=== PATIENT | female | born 1980 | race Caucasian/White ===

== ENCOUNTER 2018-07-21 08:33 | Emergency (ER) | payer BC ==
--- NOTE | 2018-07-21 09:27 | EDM.PDOC ---
ED HPI GENERAL MEDICAL PROBLEM - General Source of Information: Reports: Patient History Limitations: Reports: No Limitations - History of Present Illness Onset Date: 07/20/18 Onset Time: 12:00 Duration: Day(s): (1) Location: Reports: Face (right facial area) Severity: Mild Improves with: Reports: None Worsens with: Reports: None Associated Symptoms: Reports: No Other Symptoms. Denies: Confusion, Fever/ Chills, Nausea/Vomiting, Rash, Seizure, Shortness of Breath, Syncope Headache Pain Score (Numeric/FACES): 2 - General Chief Complaint: Neurological Problem Stated Complaint: NUMBNESS - R SIDE OF FACE Time Seen by Provider: 07/21/18 09:05 - History of Present Illness INITIAL COMMENTS - FREE TEXT/NARRATIVE: 37-year-old female presents to emergency with chief complaints of right-sided facial numbness. Patient reports that yesterday morning she woke up with what she considers a migraine and a few hours later her right side of her face became numb. 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 She denies fever or chills, any numbness or tingling to her arms, no chest pain no shortness of breath no difficulty breathing or swallowing. She denies a headache at this time. She reports that she's taken prednisone in the past for her similar symptoms. She reports that she's been otherwise in good health. She does not have a PCP. (Angelika Schreiber) - Related Data Allergies Allergy/AdvReac Type Severity Reaction Status Date / Time No Known Allergies Allergy Verified 07/21/18 08:41 Home Meds: Home Meds Mineral Oil/Petrolatum Oint [Lacri-Lube S.O.P Oint] 3.5 gm .XX DAILY #1 tube [Rx] valACYclovir [Valtrex] 1,000 mg PO TID #21 tablet 07/21/18 [Rx] Past Medical History HEENT History: Reports: Impaired Vision Other HEENT History: wears glasses - Past Surgical History HEENT Surgical History: Reports: Tonsillectomy GI Surgical History: Reports: Cholecystectomy Social & Family History - Tobacco Use Smoking Status *Q: Never Smoker Second Hand Smoke Exposure: No - Caffeine Use Caffeine Use: Reports: Coffee, Soda ED ROS GENERAL - Review of Systems Review Of Systems: See Below Constitutional: Denies: Fever, Chills HEENT: Reports: No Symptoms. Denies: Eye Pain, Vertigo, Vision Change Cardiovascular: Reports: No Symptoms Endocrine: Reports: No Symptoms GI/Abdominal: Reports: No Symptoms : Reports: No Symptoms Musculoskeletal: Reports: No Symptoms Skin: Reports: No Symptoms Neurological: Reports: Numbness (right facial region) Psychiatric: Reports: No Symptoms Hematologic/Lymphatic: Reports: No Symptoms Immunologic: Reports: No Symptoms - Physical Exam Exam: See Below Exam Limited By: No Limitations General Appearance: Alert, WD/WN, No Apparent Distress Eye Exam: Bilateral Eye: EOMI, PERRL Ears: Normal External Exam, Normal Canal, Hearing Grossly Normal, Normal TMs Nose: Normal Inspection, Normal Mucosa, No Blood Throat/Mouth: Normal Inspection, Normal Lips, Normal Teeth, Normal Gums, Normal Oropharynx, Normal Voice, No Airway Compromise Head Exam: Atraumatic, Normocephalic Neck: Normal Inspection, Supple, Non-Tender, Full Range of Motion Respiratory/Chest: No Respiratory Distress, Lungs Clear, Normal Breath Sounds, No Accessory Muscle Use, Chest Non-Tender Cardiovascular: Normal Peripheral Pulses, Regular Rate, Rhythm, No Edema, No Gallop, No JVD, No Murmur, No Rub GI/Abdominal: Normal Bowel Sounds, Soft, Non-Tender, No Organomegaly, No Distention, No Abnormal Bruit, No Mass, Pelvis Stable Neuro Exam (Abbreviated): Alert, Oriented, CN II-XII Intact, Normal Cognition, Normal Gait, Normal Reflexes, No Motor/Sensory Deficits, Other (slight right facial droop) Back Exam: Normal Inspection, Full Range of Motion Extremities: Normal Inspection, Normal Range of Motion, Non-Tender, No Pedal Edema, Normal Capillary Refill Psychiatric: Normal Affect, Normal Mood Skin Exam: Warm, Dry, Intact, Normal Color, No Rash Course - Vital Signs Last Recorded V/S: Last Vital Signs Temp 37.1 C 07/21/18 09:43 Pulse 56 L 07/21/18 09:43 Resp 18 07/21/18 09:43 BP 127/96 H 07/21/18 09:43 Pulse Ox 99 07/21/18 09:43 - Re-Assessments/Exams Free Text/Narrative Re-Assessment/Exam: 07/21/18 09:30 She presents with symptoms of [place] palsy affecting the right facial area. I will discharge home with acyclovir. I did give her a list of providers in the area. Encouraged to return to emergency room for any new or acutely worsening symptoms. (AbdoulAngelika) 07/21/18 09:58 I personally examined this patient and agree with diagnosis of right-sided Billingsley's palsy. It is of some concern that she had Billingsley's palsy 5 years ago and appears to have suffered a recurrence. Symptoms don't resolve nearly completely in the next 3 weeks then neurosurgical consultation would be advised or at least MRI imaging of her brain. She'll be see treated with a course of bells 6 [place] 1 g 3 times a day for the next week. She believes she get by with Motrin and doesn't need any pain medication at this time. Very little weakness of her right eyelid at this time. I will however send her home with some Lacri-Lube ophthalmic ointment to be applied to the lower eyelid and her eye taped closed at nighttime if the paresis worsens in the next 24-48 hours. (Asaf Pike) Departure - Departure Time of Disposition: 09:31 Condition: Good - Discharge Information *PRESCRIPTION DRUG MONITORING PROGRAM REVIEWED*: Not Applicable *COPY OF PRESCRIPTION DRUG MONITORING REPORT IN PATIENT MONICA: Not Applicable - Departure Disposition: Home, Self-Care 01 Clinical Impression: Billingsley palsy - Discharge Information Prescriptions: Mineral Oil/Petrolatum Oint [Lacri-Lube S.O.P Oint] 3.5 gm .XX DAILY #1 tube valACYclovir [Valtrex] 1,000 mg PO TID #21 tablet Instructions: Billingsley Palsy, Adult Referrals: PCP,None [Primary Care Provider] - Forms: ED Department Discharge Additional Instructions: You have been diagnosed with Billingsley's palsy. Take one tablet 3 times a day for 7 days. If further weakness of the right upper eyelid occurs then use Lacri- Lube ointment to the lower eyelid and tape. I closed overnight until the muscle function returns normally so that the eye steaks closed while at sleep. The risk of drying out the cornea can occur if the eye remains open overnight. Follow-up with [facility] clinic if necessary [phone]. Return to emergency room for any new or acutely worsening symptoms.
== END 2018-07-21 10:09 | disposition home or self-care (01) ==
LOC: JD.ED 08:33
DX: G51.0 Bell's palsy (principal); Z79.899 Other long term (current) drug therapy
CPT/HCPCS: 99283

== ENCOUNTER 2020-03-20 15:39 | Emergency (ER) | payer BC ==
--- NOTE | 2020-03-20 16:20 | EDM.PDOC ---
ED HPI GENERAL MEDICAL PROBLEM - General Chief Complaint: Chest Pain Stated Complaint: CHEST PAIN Time Seen by Provider: 03/20/20 16:10 - History of Present Illness INITIAL COMMENTS - FREE TEXT/NARRATIVE: 39-year-old female presents the emergency room with left-sided chest discomfort that radiates into her left arm. This is been going on for the last week and has been getting progressively worse. But today it seemed to be out of proportionally worse. This pain is not associated with any shortness of breath. The pain seems to be anterior chest about two th[address] way up if the patient rubs on the area it does not make it worse. At times the chest pain radiates across to the right side that it seems to be originating from the left side. She has not had any associated nausea or vomiting with this. She does not have a cough apparently she was tested for Covid at the end of last week and this weekend it was resulted as negative. Left Chest Pain Score (Numeric/FACES): 9 - Related Data Allergies Allergy/AdvReac Type Severity Reaction Status Date / Time No Known Allergies Allergy Verified 03/20/20 15:48 Home Meds: Home Meds traZODone HCl [Trazodone HCl] 50 mg PO BEDTIME 03/20/20 [History] Past Medical History HEENT History: Reports: Impaired Vision Other HEENT History: wears glasses Psychiatric History: Reports: Anxiety - Past Surgical History HEENT Surgical History: Reports: Tonsillectomy GI Surgical History: Reports: Cholecystectomy Social & Family History - Tobacco Use Tobacco Use Status *Q: Never Tobacco User Second Hand Smoke Exposure: No - Caffeine Use Caffeine Use: Reports: Coffee - Recreational Drug Use Recreational Drug Use: No ED ROS GENERAL - Review of Systems Review Of Systems: See Below Constitutional: Reports: No Symptoms. Denies: Fever, Chills HEENT: Reports: No Symptoms Respiratory: Reports: Pleuritic Chest Pain Cardiovascular: Reports: Chest Pain Endocrine: Reports: No Symptoms GI/Abdominal: Reports: No Symptoms : Reports: No Symptoms Musculoskeletal: Reports: No Symptoms Skin: Reports: No Symptoms Neurological: Reports: No Symptoms ED EXAM, GENERAL - Physical Exam Exam: See Below Exam Limited By: No Limitations General Appearance: Alert, No Apparent Distress Head: Atraumatic, Normocephalic Neck: Normal Inspection, Supple, Non-Tender, Full Range of Motion Respiratory/Chest: No Respiratory Distress, Lungs Clear, Normal Breath Sounds, Other (Patient of the chest wall does seem to elicit the discomfort patient just to the left side of the sternum at about the fourth or fifth rib in the musculature she has 1 spot that is exquisitely tender with palpation and this does mimic the pain she is having) Cardiovascular: Regular Rate, Rhythm, No Edema, No Murmur GI/Abdominal: Normal Bowel Sounds, Soft, Non-Tender, No Organomegaly, No Distention, No Abnormal Bruit, No Mass Back Exam: Normal Inspection, Full Range of Motion. No: CVA Tenderness (L), CVA Tenderness (R) Extremities: Normal Inspection, Normal Range of Motion, Non-Tender, No Pedal Edema, Other (Patient has bilateral positive Tinel's sign however this causes pain into the shoulders and into the shoulder region however this does not reproduce the pain that brought her in today.) Neurological: Alert, Oriented, Normal Gait Lymphatic: No Adenopathy Course - Vital Signs Last Recorded V/S: Last Vital Signs Temp 36.7 C 03/20/20 15:45 Pulse 92 03/20/20 15:45 Resp 18 03/20/20 15:45 BP 159/95 H 03/20/20 15:45 Pulse Ox 100 03/20/20 15:45 - Orders/Labs/Meds Orders: Active Orders 24 hr Category Date Time Status CORONAVIRUS COVID-19 PCR PHL Stat Lab 03/20/20 16:40 Ordered Labs: Laboratory Tests 03/20/20 03/20/20 03/20/20 Range/Units 17:00 17:00 17:00 WBC 12.24 H (3.98-10.04) K/mm3 RBC 4.41 (3.98-5.22) M/mm3 Hgb 15.0 (11.2-15.7) gm/dl Hct 43.4 (34.1-44.9) % MCV 98.4 H (79.4-94.8) fl MCH 34.0 H (25.6-32.2) pg MCHC 34.6 (32.2-35.5) g/dl RDW Std Deviation 46.0 (36.4-46.3) fL Plt Count 224 (182-369) K/mm3 MPV 10.2 (9.4-12.3) fl Neut % (Auto) 65.7 (34.0-71.1) % Lymph % (Auto) 26.2 (19.3-51.7) % Gregg % (Auto) 6.0 (4.7-12.5) % Eos % (Auto) 1.5 (0.7-5.8) Baso % (Auto) 0.2 (0.1-1.2) % Neut # (Auto) 8.03 H (1.56-6.13) K/mm3 Lymph # (Auto) 3.21 (1.18-3.74) K/mm3 Gregg # (Auto) 0.74 H (0.24-0.36) K/mm3 Eos # (Auto) 0.18 (0.04-0.36) K/mm3 Baso # (Auto) 0.03 (0.01-0.08) K/mm3 PT 10.7 (9.7-12.0) SECONDS INR 1.00 APTT 29.5 (21.7-31.4) SECONDS Sodium 138 (136-145) mEq/L Potassium 3.4 L (3.5-5.1) mEq/L Chloride 104 (98-107) mEq/L Carbon Dioxide 23 (21-32) mEq/L Anion Gap 14.4 (5-15) BUN 7 (7-18) mg/dL Creatinine 0.8 (0.55-1.02) mg/dL Est Cr Clr Drug Dosing 85.80 mL/min Estimated GFR (MDRD) > 60 (>60) mL/min BUN/Creatinine Ratio 8.8 L (14-18) Glucose 91 (74-106) mg/dL Calcium 9.3 (8.5-10.1) mg/dL Ferritin (8-252) ng/ml Total Bilirubin 0.8 (0.2-1.0) mg/dL AST 20 (15-37) U/L ALT 22 (14-59) U/L Alkaline Phosphatase 81 (46-116) U/L Lactate Dehydrogenase 160 (81-234) U/L Troponin I 0.040 (0.00-0.056) ng/mL C-Reactive Protein 2.1 H* (<1.0) mg/dL Total Protein 7.4 (6.4-8.2) g/dl Albumin 3.6 (3.4-5.0) g/dl Globulin 3.8 gm/dL Albumin/Globulin Ratio 1.0 (1-2) 1116/20 Range/Units 17:00 WBC (3.98-10.04) K/mm3 RBC (3.98-5.22) M/mm3 Hgb (11.2-15.7) gm/dl Hct (34.1-44.9) % MCV (79.4-94.8) fl MCH (25.6-32.2) pg MCHC (32.2-35.5) g/dl RDW Std Deviation (36.4-46.3) fL Plt Count (182-369) K/mm3 MPV (9.4-12.3) fl Neut % (Auto) (34.0-71.1) % Lymph % (Auto) (19.3-51.7) % Gregg % (Auto) (4.7-12.5) % Eos % (Auto) (0.7-5.8) Baso % (Auto) (0.1-1.2) % Neut # (Auto) (1.56-6.13) K/mm3 Lymph # (Auto) (1.18-3.74) K/mm3 Gregg # (Auto) (0.24-0.36) K/mm3 Eos # (Auto) (0.04-0.36) K/mm3 Baso # (Auto) (0.01-0.08) K/mm3 PT (9.7-12.0) SECONDS INR APTT (21.7-31.4) SECONDS Sodium (136-145) mEq/L Potassium (3.5-5.1) mEq/L Chloride (98-107) mEq/L Carbon Dioxide (21-32) mEq/L Anion Gap (5-15) BUN (7-18) mg/dL Creatinine (0.55-1.02) mg/dL Est Cr Clr Drug Dosing mL/min Estimated GFR (MDRD) (>60) mL/min BUN/Creatinine Ratio (14-18) Glucose (74-106) mg/dL Calcium (8.5-10.1) mg/dL Ferritin 143 (8-252) ng/ml Total Bilirubin (0.2-1.0) mg/dL AST (15-37) U/L ALT (14-59) U/L Alkaline Phosphatase (46-116) U/L Lactate Dehydrogenase (81-234) U/L Troponin I (0.00-0.056) ng/mL C-Reactive Protein (<1.0) mg/dL Total Protein (6.4-8.2) g/dl Albumin (3.4-5.0) g/dl Globulin gm/dL Albumin/Globulin Ratio (1-2) Meds: Medications Discontinued Medications Generic Name Dose Route Start Last Admin Trade Name Cresencio PRN Reason Stop Dose Admin Potassium Chloride 40 meq 03/20/20 17:55 03/20/20 18:18 Klor-Con M20 PO 03/20/20 17:56 40 meq ONETIME ONE Administration - Re-Assessments/Exams Free Text/Narrative Re-Assessment/Exam: 03/20/20 18:25 Laboratory evaluation shows a normal troponin her potassium was little low at 3.4 she was given 40 mEq of oral potassium. EKG shows no acute ST changes she has nonspecific ST depression with a sinus dysrhythmia. I discussed the findings with the work-up with the patient and she is assured with a negative troponin. She would like to go home at this point. We will discharge her with recommendations to take naproxen twice daily with her morning and evening meals. Departure - Departure Time of Disposition: 18:27 Disposition: Home, Self-Care 01 Clinical Impression: Chest wall pain Referrals: PCP,None [Primary Care Provider] - Forms: ED Department Discharge Additional Instructions: Return to the emergency room with any questions problems or worsening symptoms. Follow-up with your regular healthcare provider or the hospital clinic at the end of this week for recheck. [phone] Try [id number] naproxen 1 or 2 twice daily with your morning and evening meals. Sepsis Event Note (ED) - Evaluation Sepsis Screening Result: No Definite Risk - Focused Exam Vital Signs: Vital Signs Temp Pulse Resp BP Pulse Ox 03/20/20 15:45 36.7 C 92 18 159/95 H 100 - My Orders Last 24 Hours: My Active Orders 03/20/20 16:40 CORONAVIRUS COVID-19 PCR PHL Stat - Assessment/Plan Last 24 Hours: My Active Orders 03/20/20 16:40 CORONAVIRUS COVID-19 PCR PHL Stat
[2020-03-20] MEDS ORDERED: Potassium Chloride 20 MEQ Tab.ER PO ONE (17:55)
== END 2020-03-20 18:52 | disposition home or self-care (01) ==
LOC: JD.ED 15:39
DX: R07.89 Other chest pain (principal); F41.9 Anxiety disorder, unspecified; Z79.899 Other long term (current) drug therapy
CPT/HCPCS: 36415; 80053; 82728; 83615; 84484; 85025; 85610; 85730; 86140; 99285; A9270; 93010; 99283

== ENCOUNTER 2020-08-29 07:29 | Emergency (ER) | payer BC ==
--- NOTE | 2020-08-29 07:45 | EDM.PDOC ---
ED HPI GENERAL MEDICAL PROBLEM - General Chief Complaint: Laceration Stated Complaint: RT HAND LAC Time Seen by Provider: 08/29/20 07:39 - History of Present Illness INITIAL COMMENTS - FREE TEXT/NARRATIVE: 40-year-old female presents the emergency room with a laceration to her right hand. This occurred just before arrival the patient was bit by her cat. The cat was spooked when the patient turned on the vacuum cleaner and presser. This is a family pet up-to-date on its vaccines and rabies patient was bit in the right hand between the thumb and index finger. Her last tetanus shot was about 11 years ago. Patient has no other injuries associated with this most unfortunate event - Related Data Allergies Allergy/AdvReac Type Severity Reaction Status Date / Time No Known Allergies Allergy Verified 08/29/20 07:39 Home Meds: Home Meds traZODone HCl [Trazodone HCl] 50 mg PO BEDTIME 03/20/20 [History] Amoxicillin/Potassium Clav [Augmentin 875-125 Tablet] 1 each PO BID #14 tablet 08/29/20 [Rx] Past Medical History HEENT History: Reports: Impaired Vision Other HEENT History: wears glasses Psychiatric History: Reports: Anxiety - Past Surgical History HEENT Surgical History: Reports: Tonsillectomy GI Surgical History: Reports: Cholecystectomy Social & Family History - Caffeine Use Caffeine Use: Reports: Coffee ED ROS GENERAL - Review of Systems Review Of Systems: See Below Constitutional: Reports: No Symptoms Respiratory: Reports: No Symptoms Cardiovascular: Reports: No Symptoms GI/Abdominal: Reports: No Symptoms ED EXAM, SKIN/RASH Exam: See Below Exam Limited By: No Limitations General Appearance: Alert, No Apparent Distress Respiratory/Chest: No Respiratory Distress, Lungs Clear, Normal Breath Sounds Cardiovascular: Regular Rate, Rhythm, No Edema, No Murmur Extremities: Other (Examination of her right hand shows a subcutaneous laceration with stellate ends transversely across the webspace between the thumb and index finger muscle is visualized when the wound is open.) Neurological: Other (Logic function in the surrounding digits and hand is intact as is vascular supply. Superficial puncture wound dorsal aspect metacarpophalangeal joint of the thumb I do not believe this broke the skin completely.). No: Sensory/Motor Deficit ED SKIN PROCEDURES - Laceration/Wound Repair Right Hand Appearance: Subcutaneous, Clean Distal NVT: Neuro & Vascular Intact Anesthetic Type: Local Local Anesthesia - Lidocaine (Xylocaine): 1% Plain Local Anesthetic Volume: Other (0.5cc) Skin Prep: Saline Exploration/Debridement/Repair: Wound Explored, In a Bloodless Field, Explored to Base Closed with: Sutures Lac/Wound length In cm: 1 Suture Size: 4-0 Suture Type: Nylon Tetanus Status Addressed: Yes (Tetanus status was updated with Boostrix) Complications: No Progress/Comments: Single stitch placed more on the palmar aspect. The wound can still open on both sides of the stitch stitch was placed loosely. Course - Vital Signs Last Recorded V/S: Last Vital Signs Temp 36.4 C 08/29/20 07:39 Pulse 94 08/29/20 07:39 Resp 16 08/29/20 07:39 BP 139/11 L 08/29/20 07:39 Pulse Ox 98 08/29/20 07:39 - Orders/Labs/Meds Orders: Active Orders 24 hr Category Date Time Status Vaccines to be Administered [RC] PER UNIT ROUTINE Care 08/29/20 07:51 Active Meds: Medications Discontinued Medications Generic Name Dose Route Start Last Admin Trade Name Freq PRN Reason Stop Dose Admin Amoxicillin/Clavulanate Potassium 1 tab 08/29/20 07:46 08/29/20 08:12 Amoxicillin/Clavulanate K 875-125 Mg Tab PO 08/29/20 07:47 1 tab ONETIME ONE Administration Diphtheria/Tetanus/Acell Pertussis 0.5 ml 08/29/20 07:50 08/29/20 08:12 Diphtheria,Pertussis(Acell),Tetanus Vaccine 0.5 Ml Syringe IM 08/29/20 07:51 0.5 ml .ONCE ONE Administration Lidocaine HCl 10 ml 08/29/20 07:46 08/29/20 08:11 Lidocaine 1% 10 Ml Mdv INJECT 08/29/20 07:47 10 ml ONETIME ONE Administration - Re-Assessments/Exams Free Text/Narrative Re-Assessment/Exam: 08/29/20 08:31 Will be started on Augmentin her tetanus is up-to-date because of the unfortunate location of the bite/laceration I will put a single stitch in as this wound will open every time she moves her thumb. I did discuss with the patient the risks of infection and she understands the purpose of only putting 1 stitch in. Departure - Departure Time of Disposition: 08:35 Disposition: Home, Self-Care 01 Clinical Impression: Bite from cat, Hand laceration - Discharge Information Referrals: PCP,None [Primary Care Provider] - Forms: ED Department Discharge Additional Instructions: Return to the emergency room with any questions problems or worsening symptoms. Return with increased pain swelling or drainage. Keep the wound absolutely clean and dry for the next 48 hours. After 48 hours you can let water gently roll over the area then gently dab dry no scrubbing. Suture removal in 10 days. You can follow-up in the clinic for this. Sepsis Event Note (ED) - Focused Exam Vital Signs: Vital Signs Temp Pulse Resp BP Pulse Ox 08/29/20 07:39 36.4 C 94 16 139/11 L 98 - My Orders Last 24 Hours: My Active Orders 08/29/20 07:51 Vaccines to be Administered [RC] PER UNIT ROUTINE - Assessment/Plan Last 24 Hours: My Active Orders 08/29/20 07:51 Vaccines to be Administered [RC] PER UNIT ROUTINE
[2020-08-29] MEDS ORDERED: Lidocaine 1% 10 ML MDV INJECT ONE (07:46)
[2020-08-29] MEDS ORDERED: Amoxicillin/Clavulanate K 875-125 MG Tab PO ONE (07:46)
[2020-08-29] MEDS ORDERED: Diphtheria,Pertussis(Acell),Tetanus Vaccine 0.5 ML Syringe IM ONE (07:50)
== END 2020-08-29 08:53 | disposition home or self-care (01) ==
LOC: JD.ED 07:29
DX: S61.451A Open bite of right hand, initial encounter (principal); Z23 Encounter for immunization; W55.01XA Bitten by cat, initial encounter
CPT/HCPCS: 12001; 90471; 90715; 99283; A9270

== ENCOUNTER 2024-04-02 23:33 | Emergency (ER) | payer BC ==
[2024-04-03] MEDS ORDERED: Sodium Chloride 0.9% 10 ML Syringe FLUSH PRN (02:21)
[2024-04-03 02:42] LABS: BASOPHILS ABSOLUTE AUTO 0.1 K/mm3 (0.0-0.2); BASOPHILS PERCENT AUTO 0.5 % (0.0-1.0); EOSINOPHILS ABSOLUTE AUTO 0.4 K/mm3 (0.0-0.4); EOSINOPHILS PERCENT AUTO 2.7 % (0.0-6.0); HEMATOCRIT 43.8 % (37.0-47.0); HEMOGLOBIN 14.5 gm/dl (12.0-16.0); IMMATURE GRAN ABSOLUTE AUTO 0.06 K/mm3 (0.00-0.05); IMMATURE GRAN PERCENT AUTO 0.4 % (0.0-0.4); LYMPHOCYTES ABSOLUTE AUTO 4.5 K/mm3 (1.0-4.8); LYMPHOCYTES PERCENT AUTO 33.2 % (24.0-44.0); MEAN CORPUSCULAR HEMOGLOBIN 33.1 pg (28.0-32.0); MEAN CORPUSCULAR HGB CONC 33.1 g/dl (32.0-36.0); MEAN PLATELET VOLUME 9.9 fl (9.4-12.3); MONOCYTES ABSOLUTE AUTO 0.7 K/mm3 (0.0-0.8); MONOCYTES PERCENT AUTO 5.4 % (0.0-8.0); NEUTROPHILS ABSOLUTE AUTO 7.8 K/mm3 (1.8-7.7); NEUTROPHILS PERCENT AUTO 57.8 % (41.0-71.0); PLATELET COUNT,PLT 239 K/mm3 (150-400); RED BLOOD CELL COUNT 4.38 M/mm3 (4.10-5.30); WHITE BLOOD CELL COUNT,WBC 13.51 K/mm3 (3.9-11.3)
[2024-04-03] MEDS: Iopamidol 612 MG/ML 100 ML Bottle IVPUSH ONE (02:53)
[2024-04-03 03:08] LABS: ANION GAP 10.6 (5-15); BUN/CREATININE RATIO 11.3 (14-18); CALCIUM 8.7 mg/dL (8.5-10.1); CREATININE 0.8 mg/dL (0.55-1.02); EST CRCL DRUG DOSING (CG) 82.43 mL/min; POTASSIUM,K 3.6 mEq/L (3.5-5.1)
[2024-04-03 03:15] LABS: LACTIC ACID 0.8 mmol/L (0.4-2.0)
[2024-04-03] MEDS: cefTRIAXone 2 GM in Sodium Chloride 0.9% 100 ML IV ONE (04:23)
[2024-04-03] MEDS: VANCOmycin 2 GM/400 ML 2 GM in Premix Bag 1 BAG IV ONE (04:55)
[2024-04-03] MEDS ORDERED: Naloxone 0.4 MG/ML SDV IVPUSH PRN (04:58)
[2024-04-03] MEDS: HYDROmorphone 1 MG/ML Syringe IVPUSH ONE (05:02)
== END 2024-04-03 07:08 | disposition home or self-care (01) ==
LOC: JD.ED 23:33
DX: H66.91 Otitis media, unspecified, right ear (principal); E66.9 Obesity, unspecified; Z86.16 Personal history of COVID-19; Z90.49 Acquired absence of other specified parts of digestive tract; Z79.899 Other long term (current) drug therapy; Z68.42 Body mass index [BMI] 45.0-49.9, adult
CPT/HCPCS: 36415; 70491; 80048; 83605; 85025; 86140; 96365; 96366; 96367; 96375; 99283; J0696; J1171; J3372; J3490; Q9967